=== PATIENT | female | born 1975 | race Caucasian/White ===

== ENCOUNTER → 2016-09-23 | Outpatient (CLI) | payer OTHER ==
[~2016-09-23] MED LIST: EFFSR150 PO; PRENTAB26 PO
--- NOTE | 2016-09-23 14:25 | MAMMOGRAPHY REPORT ---
BILATERAL DIGITAL SCREENING MAMMOGRAM TOMOSYNTHESIS WITH CAD: 09/23/2016 CLINICAL HISTORY: Routine screening. Patient has no complaints. TECHNIQUE: Breast tomosynthesis in addition to standard 2D mammography was performed. Current study was also evaluated with a Computer Aided Detection (CAD) system. COMPARISON: Comparison is made to exams dated: 09/20/2015 mammogram, 09/12/2015 mammogram, and 6 ultrasound - [facility]. BREAST COMPOSITION: The tissue of both breasts is extremely dense, which lowers the sensitivity of mammography. FINDINGS: No suspicious masses, calcifications, or areas of architectural distortion are noted in e ither breast. There has been no significant interval change compared to prior exams. A biopsy marke r clip is again noted in the left upper outer quadrant. Bilateral benign-appearing calcifications a re not significantly changed. IMPRESSION: ACR BI-RADS CATEGORY 2: BENIGN There is no mammographic evidence of malignancy. A 1 year screening mammogram is recommended. The p atient will receive written notification of the results. Approximately 10% of breast cancers are not detected with mammography. A negative mammographic repor t should not delay biopsy if a clinically suggestive mass is present. Sandee Guaman M.D. /:09/23/2016 11:58:55 Recorder Of Deeds: Chica CHAUDHARI(Beverley)(Kari)(SANTA), [facility] letter sent: Normal 1/2 BI-RADS Code: ACR BI-RADS Category 2: Benign
== END | disposition home or self-care (01) ==
LOC: C.MAMM 11:20
PROVIDERS: ATTEND Obstetrics & Gynecology
DX: Z12.31 Encounter for screening mammogram for malignant neoplasm of breast (principal)

== ENCOUNTER → 2017-10-19 | Outpatient (CLI) | payer BC ==
--- NOTE | 2017-10-20 15:22 | MAMMOGRAPHY REPORT ---
BILATERAL DIGITAL SCREENING MAMMOGRAM TOMOSYNTHESIS WITH CAD: 10/19/2017 CLINICAL HISTORY: Routine screening. Patient has no complaints. TECHNIQUE: Breast tomosynthesis in addition to standard 2D mammography was performed. Current study was also evaluated with a Computer Aided Detection (CAD) system. COMPARISON: Comparison is made to exams dated: 09/23/2016 mammogram, 09/20/2015 ultrasound biopsy, 09/06 mammogram, 09/12/2015 mammogram, and 09/12/2015 ultrasound - [facility]. BREAST COMPOSITION: The tissue of both breasts is extremely dense, which lowers the sensitivity of m ammography. FINDINGS: There is a stable ribbon-shaped biopsy marker clip in the upper outer quadrant of the left breast. A few scattered and loosely grouped benign-appearing round microcalcifications. No suspicio us mass, architectural distortion or cluster of microcalcifications is seen. IMPRESSION: ACR BI-RADS CATEGORY 1: NEGATIVE There is no mammographic evidence of malignancy. A 1 year screening mammogram is recommended. The pa tient will receive written notification of the results. Approximately 10% of breast cancers are not detected with mammography. A negative mammographic report should not delay biopsy if a clinically suggestive mass is present. Patrica Harley M.D. ay/:10/19/2017 17:03:06 Parking Analyst: Tamika GUEVARA)(M), [facility] letter sent: Normal 1/2 BI-RADS Code: ACR BI-RADS Category 1: Negative
== END | disposition home or self-care (01) ==
LOC: C.MAMM 09:12
PROVIDERS: ATTEND Obstetrics & Gynecology
DX: Z12.31 Encounter for screening mammogram for malignant neoplasm of breast (principal)

== ENCOUNTER 2022-03-12 15:46 | Inpatient (IN) ==
--- NOTE | 2022-03-12 16:08 | History and Physical Report ---
DATE OF ADMISSION: 03/12/2022 CHIEF COMPLAINT: Heavy vaginal bleeding, dizziness. HISTORY OF PRESENT ILLNESS: The patient is a 46-year-old 4, para 3. She has had one spontaneous AB. General health is good. She is on metoprolol for irregular heartbeat. States she is ALLERGIC TO BACTRIM. She has a Mirena IUD in place. She has had trouble with the Mirena. She has had episodes of heavy bleeding. She had a transvaginal ultrasound on 02/24/2022, and this showed a submucous fibroid, 3.2 x 3.0 x 3.0 cm, with a Mirena IUD in good position. In order to try to control the bleeding, we put her on control pills. She took a cycle of oral contraceptives, she started flooding. She started flooding the day prior to admission. She was up all night, changing her pad every 20 minutes. I did a speculum exam in the office. She immediately flooded the speculum with dark red clots. She is presently being scheduled for an emergency total abdominal hysterectomy with preservation of the ovaries. PAST MEDICAL HISTORY: Three children. ALLERGIES: SHE IS ALLERGIC TO BACTRIM. MEDICATION: She is on metoprolol for irregular heartbeat. PAST SURGICAL HISTORY: She had eye surgery and she had her right knee operated on. SOCIAL HISTORY: No smoking. No excessive alcohol intake. Works for [employer]. FAMILY HISTORY: Father at age 52 in a car accident. Mother at age 64, alcoholic. One brother, age 44. One sister, 54, in good health. REVIEW OF SYSTEMS: She does have a history of migraine headaches. No history of frequent ear infections, nosebleeds, sore throat. PHYSICAL EXAMINATION: GENERAL: Well-developed, well-nourished 46-year-old white female, alert, oriented x3. Experienced some lightheadedness. HEART: Had regular rhythm. S1 and S2 are normal. LUNGS: Clear to auscultation and percussion. BREASTS: Exam was normal. EXTREMITIES: She has some tattoos on both of her arms. ABDOMEN: Soft and nontender. PELVIC: Revealed a heavy vaginal bleeding with clotting. Uterus was anteverted. There were no adnexal masses appreciated. MUSCULOSKELETAL: Revealed no calf tenderness. IMPRESSION OF THIS CASE: Status post eye surgery, status post right knee surgery, irregular heartbeat, symptomatic anemia, heavy vaginal bleeding, symptomatic submucous leiomyoma. Job ID: [id number] [facility]
[2022-03-12] MEDS ORDERED: SODIUM CHLORIDE 0.9% 250 ML IV PRN (16:15)
[2022-03-12 16:48] LABS: Basophils # (auto) 0.04 K/uL (0-0.2); Basophils % (auto) 0.4 %; Eosinophils # (auto) 0.17 K/uL (0-0.50); Eosinophils % (auto) 1.7 %; Hematocrit (blood only) 32.2 % (34.1-44.9); Hemoglobin 10.8 g/dl (12.0-16.0); Immature Granulocytes # (auto) 0.03 K/uL (0.00-0.02); Immature Granulocytes % (auto) 0.3 %; Lymphocytes # (auto) 1.99 K/uL (1.2-3.4); Lymphocytes % (auto) 19.3 %; Mean Corpuscular Hemoglobin 29.5 pg (25.0-34.0); Mean Corpuscular Hgb Conc 33.5 g/dL (32.0-36.0); Mean Platelet Volume 9.9 fL (9.4-12.3); Monocytes # (auto) 0.83 K/uL (0.24-0.82); Monocytes % (auto) 8.1 %; Neutrophils # (auto) 7.24 K/uL (1.4-6.5); Neutrophils % (auto) 70.2 %; Platelet Count 253 K/uL (130-400); RDW Coefficient of Variation 13.1 % (11.5-14.5); RDW Standard Deviation 42.1 fL (36.4-46.3); Red Blood Count 3.66 M/uL (3.93-5.22)
[2022-03-12] MEDS ORDERED: HEPARIN 100 UNIT/ML 5ML FLUSH ONE (17:13)
[2022-03-12] MEDS ORDERED: cefOXitin 2,000 MG in DEXTROSE 5% 50 ML IV STA (17:14)
[2022-03-12] MEDS: LACTATED RINGER'S 1,000 ML IV SCH ×2 (17:16→22:07)
[2022-03-12] MEDS ORDERED: LIDOCAINE 2% 2 ML VIAL/AMP(20MG/ML) INFIL ONE (17:16)
[2022-03-12] MEDS ORDERED: PROPOFOL IV EMULSION 10 MG/ML 20 ML VIAL IV ONE (17:16)
[2022-03-12] MEDS ORDERED: ROCURONIUM BROMIDE 10 MG/ML 5 ML VIAL IV ONE (17:16)
[2022-03-12] MEDS ORDERED: BUPIVACAINE 0.5 % 5 MG/1 ML PF 10ML VIAL ONE (17:16)
[2022-03-12] MEDS ORDERED: MIDAZOLAM HCL 1 MG/ML 2ML VIAL ONE ×2 (17:18→18:03)
[2022-03-12] MEDS ORDERED: fentaNYL citrate 100 MCG/2 ML VIAL ONE ×2 (17:18→19:01)
[2022-03-12] MEDS ORDERED: ONDANSETRON INJ 2 MG/ML 2 ML VIAL ONE (17:22)
[2022-03-12] MEDS ORDERED: DEXAMETHASONE SOD INJ 4 MG/ML VIAL ONE (17:22)
--- NOTE | 2022-03-12 17:42 | Anesthesiology Consultation ---
Date of Service March 12, 2022 Assessment & Plan (1) Encounter for pre-operative examination: Chart Review Chart Review: Acceptable Risk for Surgery (Emergent due to concerns of bleeding) History Surgery Operation Date: 03/12/22 09:50 Proposed Procedures p Total Abdominal Hysterectomy - Pedro Brown MD Height/Weight Height: 5 ft 1 in Weight: 57 kg Allergies Allergy/AdvReac Type Severity Reaction Status Date / Time sulfamethoxazole Allergy Verified 01/29/21 10:30 [From Bactrim] trimethoprim [From Bactrim] Allergy Verified 01/29/21 10:30 Medications Home Medications Medication Instructions Recorded Confirmed Last Taken metoprolol tartrate 25 mg PO HS 01/08/21 03/12/22 03/11/22 21:00 Active Medications Generic Name Dose Route Start Last Admin Trade Name Freq PRN Reason Stop Dose Admin Lactated Ringer's 1,000 mls @ 125 mls/hr 03/12/22 16:30 03/12/22 17:16 Lr IV 03/13/22 00:29 125 mls/hr .Q8H MANUEL Administration NPO Last Intake of Fluids Comment: 14:00 Last Intake of Solids Comment: 14:00 Past Medical History Medical History (Updated 03/12/22 @ 17:42 by Will Abarca MD) Atrial fibrillation Past Surgical History Surgical History (Updated 03/12/22 @ 17:42 by Will Abarca MD) Hx of arthroscopic knee surgery Social History Smoking Status: Never smoker Do You Dip or Chew Tobacco: No Hx Alcohol Use: No Hx Substance Use: No Physical Exam Vital Signs Last Vital Signs Temp 37.0 C 03/12/22 15:55 Pulse 68 03/12/22 15:55 Resp 20 03/12/22 15:55 BP 119/74 03/12/22 15:55 Pulse Ox 98 03/12/22 15:55 Testing Laboratory Results 03/12/22 16:28
[2022-03-12] MEDS ORDERED: MoRPHine SULFATE PF 1 MG/ML 10 ML AMP/VIAL ONE (17:46)
[2022-03-12] MEDS ORDERED: BUPIVACAINE 0.25% 30 ML VIAL ONE (17:58)
--- NOTE | 2022-03-12 18:23 | Anesthesia Procedure Note ---
Date of Service March 12, 2022 Anesthesia Post Epidural Note Vital Signs Vital Signs: Temp Pulse Resp BP Pulse Ox 37.0 C 68 18 102/51 L 100 03/12/22 17:35 03/12/22 17:35 03/12/22 17:35 03/12/22 17:35 03/12/22 17:35 Pain Intensity Medial Abdomen: Pain Intensity: 5 Notes Mental Status: alert / awake / arousable and participated in evaluation Nausea / Vomiting: adequately controlled Pain: adequately controlled Airway Patency, RR, SpO2: stable & adequate BP & HR: stable & adequate Hydration State: stable & adequate Neuraxial Anesthesia: was administered and sensory block is resolving Anesthetic Complications: no major complications apparent Epidural: Removed without complications and With tip intact Notes: afterhaving developed a droopy right eyelid and to some degree face, lowered her centrifugal spinner dose - since has delivered without issue and droopiness has resolved.
[2022-03-12] MEDS ORDERED: HEPARIN (PORCINE) 1000 UNIT/ML 10 ML (CATH LAB USE ONLY) ONE (18:29)
[2022-03-12] MEDS ORDERED: NALOXONE HCL 0.4 MG/1 ML VIAL/CARP IV PRN (19:38)
[2022-03-12] MEDS ORDERED: NALOXONE HCL 0.08 MG in SYRINGE 1.8 ML IV PRN (19:38)
[2022-03-12] MEDS ORDERED: MoRPHine SULFATE 2 MG/ML CARP IV PRN (19:38)
[2022-03-12] MEDS ORDERED: PROMETHAZINE HCL 12.5 MG in SODIUM CHLORIDE 0.9% 50 ML IV PRN (19:38)
[2022-03-12] MEDS ORDERED: ONDANSETRON INJ 2 MG/ML 2 ML VIAL IV PRN (19:38)
[2022-03-12] MEDS ORDERED: ePHEDrine sulfate 50 MG/ML AMP IV PRN (19:38)
[2022-03-12] MEDS ORDERED: NALOXONE HCL 1 MG in SODIUM CHLORIDE 0.9% 1000ML 1,000 ML IV PRN (19:38)
[2022-03-12] MEDS ORDERED: LACTATED RINGER'S 500 ML IV PRN (19:38)
[2022-03-12] MEDS ORDERED: MoRPHine SULFATE PF 1 MG/ML 10 ML AMP/VIAL INT SPINAL ONE (19:38)
[2022-03-12] MEDS ORDERED: diphenhydrAMINE 50 MG/ML VIAL IV PRN (19:38)
[2022-03-12] MEDS ORDERED: KETOROLAC 30 MG/ML VIAL IV PRN (19:38)
[2022-03-12] MEDS ORDERED: NALBUPHINE HCL INJ 10 MG/ML AMP IV PRN (19:38)
[2022-03-12] MEDS ORDERED: SODIUM CHLORIDE 0.9% 1000ML 1,000 ML IV SCH (19:45)
[2022-03-12] MEDS ORDERED: NO NARCOTICS OR SEDATIVES SCH (19:45)
[2022-03-12] MEDS ORDERED: DC INTRASPINAL MORPHINE SCH (19:45)
--- NOTE | 2022-03-12 20:44 | Post Operative Brief Note ---
Immediate Post Op Note v1 Date of Surgery March 12, 2022 Pre & Post Diagnosis Operation Date: 03/12/22 09:50 Pre-Op Diagnosis: Heavy vaginal bleeding symptomatic anemia submucous fibroid Post-Op Diagnosis: Heavy vaginal bleeding normal tubes and ovaries I identified the patient and participated in the time-out.: Yes Procedure Operation Date: 03/12/22 09:50 Actual Procedures p Total Abdominal Hysterectomy(Not Applicable) - Pedro Brown MD Surgeon Pedro Brown MD [place] none Estimated Blood Loss 150 Findings Consistent with Post-Op Diagnosis moderate amount of dark blood in the peritoneum enlarged uterus Drains Grace Catheter and Jovanni Drain Anesthesia Type General Complications none
[2022-03-12] MEDS ORDERED: MoRPHine SULFATE 4 MG/ML 1 ML CARP\\VIAL ONE (20:48)
[2022-03-12] MEDS ORDERED: ATROPINE SULFATE 0.1 MG/ML 10ML SYR IV PRN (20:55)
[2022-03-12] MEDS ORDERED: SODIUM CHLORIDE 0.9% 50 ML BAG ONE (20:59)
[2022-03-12] MEDS ORDERED: PROMETHAZINE HCL INJ 25 MG/ML 1 ML VIAL ONE (20:59)
[2022-03-12 21:01] LABS: Hematocrit (blood only) 29.8 % (34.1-44.9); Hemoglobin 9.8 g/dl (12.0-16.0)
[2022-03-12] MEDS: HYDROmorphone INJ 1 MG/ML SYRINGE IV PRN ×2 (21:08→21:13)
[2022-03-12] MEDS ORDERED: MEPERIDINE HCL 25 MG/ML CARP/VIAL IV PRN (21:14)
--- NOTE | 2022-03-12 21:23 | Anesthesiology Progress Note ---
Date of Service March 12, 2022 Anesthesia Post Procedure Vital Signs Vital Signs: Temp Pulse Pulse Resp BP BP Pulse Ox 03/12/22 20:42 36.5 C 85 17 119/79 100 03/12/22 17:35 37.0 C 68 18 102/51 L 100 03/12/22 15:55 37.0 C 68 20 119/74 98 Pain Intensity Medial Abdomen: Pain Intensity: 5 Abdomen: Pain Intensity: 10 Transfer of Care Handoff Completed per policy Notes Mental Status: alert / awake / arousable Patient Amnestic to Procedure: Yes Nausea / Vomiting: adequately controlled Pain: adequately controlled Airway Patency, RR, SpO2: stable & adequate BP & HR: stable & adequate Hydration State: stable & adequate Anesthetic Complications: no major complications apparent
--- NOTE | 2022-03-12 22:43 | Operative Report (OR) ---
DATE OF PROCEDURE: 03/12/2022 PROCEDURE: Total abdominal hysterectomy and suspension of vaginal cuff. INDICATIONS FOR SURGERY: Heavy vaginal bleeding, symptomatic anemia, failed conservative therapy. PREOPERATIVE DIAGNOSES: Symptomatic anemia, heavy vaginal bleeding, submucous fibroid. SURGEON: Vinay Brown MD. DAY GUARD: Nursing assist. ESTIMATED BLOOD LOSS: 150 mL. ANESTHESIA: General with spinal narcotics. OPERATIVE FINDING AND PROCEDURE: The patient was brought to the OR table, correctly identified by soco draper and conversation. Spinal narcotics were administered. Then, the patient was given general ane sthesia. Grace catheter was inserted in the bladder, connected to gravity drainage. Vagina was prep ped with a Betadine prep. Lower abdomen was painted with an alcohol based sterilizing solution, was allowed to dry for 3 minutes, draped in the usual sterile fashion. A Pfannenstiel incision was made and carried down to the anterior fascia by sharp dissection. Hemost asis was secured by electrocauterization. Fascia was incised transversely from the underl lotus muscle by blunt and sharp dissection. Recti muscles were in the midline, exposing the peritoneum, which was carefully raised and entered. An O'Black-O'Chadwick self-retaining retractor was inserted into the incision and several moist laparotomy packs were used to retract the intestine s and provide adequate exposure of the pelvis. There was an enlarged uterus to about 8-9 weeks gestational size. Both ovaries appeared normal. The round ligaments on either side were clamped close to the uterus, then ligated distally with a transf ixion suture of chromic and then a silk tie and then cut. Incision was made above the vesicouterine fold. Bladder was pushed out of the operative field. Posterior leaf of the broad ligament was punch ed through bluntly on either side and then was clamped close to the fundus and then clamped distal to this, cut and then the ovarian ligament and tube were ligated with a transfixion suture of chromic c atgut and tied, and then ligated distal to this with a simple silk tie. This was done for both the r ight and left side. The uterine vessels were skeletonized, then clamped at the uterocervical junction on either side, cut with a stump and then doubly ligated with a chromic gut suture. The bladder was advanced out of the operative field and then the cardinal ligaments were cut by sliding off the cervix, cutting with a s tump and then ligating with a chromic gut suture. This was done in 3 steps because of the length of the cardinal ligament. We then entered the vaginal cuff posterior with electrocauterization and took the incision around the cervix, thus excising the surgical specimen consisting of uterus, cervix. The angles of the vaginal cuff were suture ligated to the stumps of the cardinal ligaments on either side. Then, the lateral angles of the vagina were approximated with [id number] sutures of chrom ic catgut, which were anchored to the cardinal ligaments. Midportion of the vagina was whipstitched o pen with a chromic gut suture. Then, the posterior uterosacral ligaments were plicated with a 2-0 Vi cryl, which brought the uterosacral ligaments together and further offered as cuff support. Round li gaments were brought down, anchored to the cardinal ligaments on either side, then the peritoneum was peritonealized with a 3-0 chromic, elevating the ovaries out of the pelvis and attaching them to the lateral pelvic wall and then covering up all of the stumps. This was done from the right side down to the middle of the vaginal cuff and from the left side down to the middle of the cuff and then tied to each other. Flint drain with a safety pin was placed into the vagina and the other end was out into the cul-de- sac. Hemostasis was excellent. We removed the packs. We did inspect the appendix, which was normal at the time of surgery. We then did a careful anatomical approximation after the pack count was foun d to be correct. The peritoneum was closed with a mattress suture of chromic catgut. Recti muscles were approximated with interrupted hihsms-ct-ogede suture of chromic catgut. The fascia was closed w ith continuous interlocking suture of Vicryl on either side and tied, run from the sides to the middl e. Subcutaneous was approximated with a running plain and skin edges were approximated with staple c lips. Job ID: [id number]
[2022-03-13 06:38] LABS: Hemoglobin 8.3 g/dl (12.0-16.0)
--- NOTE | 2022-03-13 09:12 | Obstetrical Progress Note ---
Date of Service March 13, 2022 Assessment & Plan Admission and Anticipated Discharge Date Admission Date: March 12, 2022 Subjective abdomen soft and non tender bandage is clean and dry no calf tenderness urine clear output good vaginal bleeding scant hgb 8.3 Results & Data ([facility]) Vital Signs (Past 12 Hours) Vital Signs Temp Pulse Pulse Resp BP BP Pulse Ox 03/13/22 07:30 37.1 C 72 15 96/51 L 99 03/13/22 06:43 18 96 03/13/22 05:00 18 96 03/13/22 04:22 36.9 C 82 16 95/52 L 98 03/13/22 04:00 18 95 03/13/22 03:00 16 94 03/13/22 02:06 18 98 03/13/22 01:17 37.6 C H 99 H 16 93/56 L 100 03/13/22 01:00 18 100 03/13/22 00:10 37 C 80 18 105/55 L 98 03/12/22 22:50 36.8 C 66 20 107/61 95 03/12/22 22:20 36.7 C 64 20 103/63 95 03/12/22 21:50 36.6 C 61 20 115/64 97 03/12/22 21:40 36.5 C 59 L 14 117/67 100 03/12/22 21:30 58 L 11 L 112/68 100 03/12/22 21:20 54 L 12 111/66 100 03/12/22 21:10 63 22 112/64 100
[2022-03-13] MEDS ORDERED: KETOROLAC 30 MG/ML VIAL IV PRN (12:00)
[2022-03-13] MEDS ORDERED: MEPERIDINE HCL 50 MG/ML CARP IV PRN (12:00)
[2022-03-13] MEDS: oxyCODONE/ACETAMINOPHEN 5mg/325mg TAB PO PRN ×2 (12:38→18:48)
[2022-03-13] MEDS ORDERED: METOPROLOL TARTRATE 25 MG TAB PO SCH (21:00)
[2022-03-13] MEDS ORDERED: DOCUSATE SODIUM 100 MG CAP PO ONE (21:34)
[2022-03-13] MEDS: SIMETHICONE 80 MG CHEW PO PRN (21:35)
[2022-03-13] MEDS: DOCUSATE SODIUM 100 MG CAP PO SCH (21:49)
[2022-03-14] MEDS: oxyCODONE/ACETAMINOPHEN 5mg/325mg TAB PO PRN (06:24)
[2022-03-14 07:47] LABS: Hematocrit (blood only) 26.5 % (34.1-44.9); Hemoglobin 8.6 g/dl (12.0-16.0)
--- NOTE | 2022-03-14 08:02 | Obstetrical Progress Note ---
Date of Service March 14, 2022 Assessment & Plan Admission and Anticipated Discharge Date Admission Date: March 12, 2022 Subjective abdomen soft and non tender incision is clean and dry no calf tenderness ambulating well nina drain removed from vaginal cuff vaginal bleeing scant hgb 8.6 Results & Data ([facility]) Vital Signs (Past 12 Hours) Vital Signs Temp Pulse Pulse Resp BP 03/13/22 23:30 36.9 C 68 68 16 104/66
[2022-03-14] MEDS: SIMETHICONE 80 MG CHEW PO PRN (08:47)
[2022-03-14] MEDS: DOCUSATE SODIUM 100 MG CAP PO SCH (08:48)
[2022-03-14] MEDS: IBUPROFEN 600 MG TAB PO PRN ×2 (09:11→13:23)
--- NOTE | 2022-03-14 10:36 | Discharge Summary (DS) ---
HOSPITAL COURSE: Mrs. Keys was seen in the office with profusely heavy bleeding. At the time of her visit, she said she has been up all night the night before changing her pad every 20 minutes. Exami shirley in the office revealed heavy bright red vaginal bleeding. Speculum was inserted and immediate ly filled up with blood. She also claimed that she felt dizzy and unsteady on her feet and was basic ally experiencing symptoms of anemia. My nurse drove her to the hospital because of her condition an d there she was admitted and a hemoglobin was 10.9 with as previously stated profusely heavy vaginal bleeding. She had a Mirena that was inserted at the time of the surgery, but she did have a submucou s fibroid, which was considered to be the cause of the bleeding. Because of the fibroid and the Morenita na and previously had been on control, it was felt that doing a D and C would not have correcte d the problem since we could not remove the fibroid with the D and C. So we proceeded to total abdom inal hysterectomy with preservation of both ovaries. Surgery went well. Estimated blood loss was 15 0 mL at the time of surgery. Postoperatively, she did well. We put a Dubois drain in the vaginal c uff. At the time of surgery, we repeated her hemoglobin that had already fallen to 9.8. The followi day, her hemoglobin was 8.3. She remained afebrile. Her bowel sounds returned, she was passing g as, tolerating regular diet. She was able to ambulate. On 03/14/2022, the Jovanni drain was removed with the safety pin and her hemoglobin now had stabilized and come up to 8.6. She was ready for dis charge. She was given the usual instructions to call if she had a temperature over 100, call if she had any heavy bleeding and to return to the office in 7 days for removal of isauro. Job ID: [id number]
== END 2022-03-14 14:10 | disposition home or self-care (01) | DRG 743 ==
LOC: 400.0 15:46